=== PATIENT | female | born 1975 | race African-American/Black ===

== ENCOUNTER 2020-04-08 19:31 | Emergency (ER) | payer OTHER ==
[~2020-04-08] VITALS: Ht 175.3 cm; Wt 65.8 kg
[2020-04-08 19:45] VITALS: BP_SYST 136
--- NOTE | 2020-04-08 19:52 | NUR ---
Pt placed to ER bed 06, to gown, report given to receiving RN.
--- NOTE | 2020-04-08 20:00 | NUR ---
DR. THORNE AT THE BEDSIDE EVALUATING PT
--- NOTE | 2020-04-08 20:10 | NUR ---
PT PRESENTS FROM HOME WITH CO GENERAL BODY PAIN AND FATIGUE FOR THE PAST MONTH. DENIES ANY MEDICAL HX. AAOX4, V/S STABLE.
--- NOTE | 2020-04-08 20:20 | NUR ---
Patient given written and verbal discharge instructions and verbalizes understanding. ER MD discussed with patient the results and treatment provided. Patient in stable condition. ID arm band removed. Rx of IBUPROFEN AND FLEXERIL given. Patient educated on pain management and to follow up with PMD. Pain Scale 6/10. Opportunity for questions provided and answered. Medication side effect fact sheet provided.
[2020-04-08 20:23] VITALS: BP_SYST 136
== END 2020-04-08 20:23 | disposition home or self-care (01) ==
LOC: SED 19:31
DX: S16.1XXA Strain of muscle, fascia and tendon at neck level, initial encounter (principal); J45.909 Unspecified asthma, uncomplicated; X50.3XXA Overexertion from repetitive movements, initial encounter; Y93.89 Activity, other specified; Y92.89 Other specified places as the place of occurrence of the external cause; Y99.8 Other external cause status
CPT/HCPCS: 99283

== ENCOUNTER 2021-03-15 10:07 | Emergency (ER) | payer OTHER ==
[~2021-03-15] VITALS: Ht 175.3 cm; Wt 68.0 kg
[2021-03-15 10:07] VITALS: BP_SYST 125
--- NOTE | 2021-03-15 10:10 | NUR ---
Patient triaged and placed in waiting room. VSS and patient appears in no acute distress at this time. Accompanied by SELF, awaiting available bed, and MD notified of need for MSE.
--- NOTE | 2021-03-15 10:40 | NUR ---
DR BERMAN OUT TO TRIAGE ROOM FOR EVALUATION
--- NOTE | 2021-03-15 11:00 | NUR ---
PT PLACED IN BED 5. CONFIRMED UTI. AWAITING ORDERS.
[2021-03-15 11:03] LABS: BILIRUBIN,URINE NEGATIVE (NEGATIVE); BLOOD, URINE 3+ (NEGATIVE); CLARITY/URINE SL CLOUDY (CLEAR); COLOR,URINE YELLOW (YELLOW); GLUCOSE,URINE NEGATIVE (NEGATIVE); KETONES,URINE TRACE (NEGATIVE); LEUKOCYTE ESTERASE ,URINE TRACE (NEGATIVE); NITRITE, URINE POSITIVE (NEGATIVE); PH,URINE 6.5 (5.0-8.0); PROTEIN URINE 2+ (NEGATIVE)
[2021-03-15] MEDS ORDERED: NITR-85 PO (11:37)
[2021-03-15] MEDS ORDERED: NITROFURANTOIN MONOHYD/M-CRYST 100 MG CAPSULE (MacroBID) PO ONE (11:45)
[2021-03-15 11:54] LABS: BACTERIA,URINE MODERATE /HPF (None Seen); WBC,URINE 20-50 /HPF (0-3)
--- NOTE | 2021-03-15 11:57 | NUR ---
Patient given written and verbal discharge instructions and verbalizes understanding. ER MD discussed with patient the results and treatment provided. Patient in stable condition. ID arm band removed. Rx of MACROBID given. Patient educated on pain management and to follow up with PMD. Pain Scale 0/10. Opportunity for questions provided and answered. Medication side effect fact sheet provided.
[2021-03-15 11:58] VITALS: BP_SYST 125
== END 2021-03-15 11:58 | disposition home or self-care (01) ==
LOC: SED 10:07
DX: N39.0 Urinary tract infection, site not specified (principal); J45.909 Unspecified asthma, uncomplicated; Z79.899 Other long term (current) drug therapy
CPT/HCPCS: 81000; 81025; 87086; 99283

== ENCOUNTER 2021-10-23 10:36 | Inpatient (IN) | payer OTHER ==
[~2021-10-23] VITALS: Ht 175.3 cm; Wt 65.8 kg
[2021-10-23] VITALS (9 sets, daily range): BP systolic 92–103
[~2021-10-23 10:36] MED LIST: NITR-85 PO
--- NOTE | 2021-10-23 10:38 | NUR ---
BROUGHT IN BY [facility]. PLACED IN BED #5 AND TRIAGED. REPORT GIVEN TO NEMESIO
--- NOTE | 2021-10-23 11:10 | NUR ---
dr levine at bedside speaking with patient
[2021-10-23] MEDS ORDERED: fentaNYL CITRATE/PF 100 MCG/2 ML AMP IVP ONE (11:15)
[2021-10-23] MEDS ORDERED: NS 1000 ML IV.SOLN IV ONE (11:15)
[2021-10-23 11:49] LABS: ANION GAP 14 (5-15); CALCIUM 9.2 mg/dL (8.4-11.0); CHLORIDE 96 mmol/L (98-107); GLUCOSE 95 mg/dL (70-99); SODIUM SERUM 127 mmol/L (136-145); UREA NITROGEN, BLOOD 59 mg/dL (8-21)
[2021-10-23 11:52] LABS: INR 1.1 (0.8-1.2)
[2021-10-23 11:55] LABS: HEMATOCRIT 34.8 % (36-48); MEAN CORPUSCULAR HEMOGLOBIN 29 pg (27-31); MEAN CORPUSCULAR HGB CONC 32 % (32-36); MEAN CORPUSCULAR VOLUME 91 fL (79.0-98.0); RED BLOOD CELL COUNT(AUTO) 3.84 MIL/uL (4.2-6.2); RED CELL DISTRIBUTION WIDTH 17.8 % (9.0-15.0)
[2021-10-23 11:58] LABS: ALANINE AMINOTRANSFERASE 327 U/L (12-78); ALBUMIN 1.5 g/dL (3.4-4.8); ASPARTATE AMINOTRANSFERASE 617 U/L (10-37); TOTAL BILIRUBIN 2.9 mg/dL (0.0-1.0)
[2021-10-23 12:01] LABS: GFR AFRICAN AMERICAN 62 mL/min (>90); POTASSIUM 5.7 mmol/L (3.5-5.1)
[2021-10-23 12:02] LABS: PLATELET COUNT (AUTO) 15 K/uL (130-430); WHITE BLOOD COUNT (AUTO) 84.2 K/uL (4.8-10.8)
[2021-10-23] MEDS ORDERED: PIPERACILLIN/TAZO 4.5 GM in NS 100 ML IV ONE (12:30)
[2021-10-23] MEDS ORDERED: PIPERACILLIN/TAZOBACTAM 4.5 GM/VIAL (ZOSYN) IV ONE (12:36)
[2021-10-23] MEDS ORDERED: INSULIN REGULAR, HUMAN 10 UNITS/0.1 ML INJ IVP ONE (12:45)
[2021-10-23] MEDS ORDERED: CALCIUM GLUCONATE 1 GM in NS 100 ML IV ONE (12:45)
[2021-10-23] MEDS ORDERED: DEXTROSE 50% JECT 50 ML DISP.SYRIN IVP ONE (12:45)
[2021-10-23] MEDS ORDERED: SODIUM BICARBONATE 0.5 MEQ/ML VIAL INJ ONE (12:45)
[2021-10-23] MEDS ORDERED: LINEZOLID 300 ML IV ONE (13:15)
--- NOTE | 2021-10-23 13:21 | NUR ---
[facility] INSURANCE SALES SUPERVISOR OF INPATIENT IN [employer], CALLED BACK AND STATED PT CAN BE ADMITTED. DR. PENNY AND DR. العراقي IS AWARE. REQUESTED FAX OF [employer]. #: [phone] FAX: [phone]
[2021-10-23] MEDS ORDERED: SODIUM BICARBONATE 8.4% JECT 50 MEQ/50 ML SYRINGE ONE (13:28)
--- NOTE | 2021-10-23 13:29 | NUR ---
Admit bed requested Patient will be admitted to care of . Admitted to ICU unit. Diagnosis SEPTIC SHOCK, ACUTE IA Inpatient (Yes or No) YES Observation (Yes or No) NO Orientation concerns or request close to nursing station (Yes or No) NO Covid Status PENDING On vent or bipap NO Isolation requirements NO Needs a sitter NO From Home (Yes or if No enter name of facility) YES Requires Dialysis (Yes or No) NO Med Rec Completed (Yes of No) YES
[2021-10-23] MEDS ORDERED: DILAUDID (13:34)
[2021-10-23] MEDS ORDERED: METOCLOPRAMIDE HCL 10 MG/2 ML VIAL IVP PRN (14:00)
[2021-10-23] MEDS ORDERED: ACETAMINOPHEN 325 MG TABLET PO PRN (14:00)
[2021-10-23] MEDS ORDERED: ONDANSETRON HCL 4 MG/2 ML VIAL IVP PRN (14:00)
[2021-10-23] MEDS ORDERED: ALBUMIN HUMAN 25% 50 ML IV ONE (14:15)
--- NOTE | 2021-10-23 14:20 | NUR ---
EKG AT BEDSIDE.
--- NOTE | 2021-10-23 14:30 | NUR ---
Echocardiogram in progress.
--- NOTE | 2021-10-23 15:05 | NUR ---
PT TAKEN TO ICU VIA [facility] WITH NURSE LITTLE.
--- NOTE | 2021-10-23 15:05 | NUR ---
Patient will be admitted to [facility]. Admitted to ICU unit. Will go to room ICU. Belongings list completed. Complete and up to date summary report printed. SBAR report to be given at bedside with opportunity for questions.
--- NOTE | 2021-10-23 15:06 | NUR ---
TO ICU. BROUGHT PT TO ROOM 3, ON O2 VIA NASAL CANNULA, PORTABLE STORY WRITER, SINUS TACHYCARDIA, PT ALERT, ORIENTED, ABLE TO EXPRESS BASIC NEEDS, ORIENTATION TO SURROUNDINGS PROVIDED, WILL CONTINUE TO MONITOR.
[2021-10-23 15:16] LABS: ATYPICAL LYMPHOCYTES % 5 % (0-0); BAND % (MANUAL) 6 % (0-6); CORRECTED WHITE BLOOD COUNT 66.3 K/uL (4.5-11.0); LYMPHOCYTES % (MANUAL) 3 % (20-46); MONOCYTES % (MANUAL) 5 % (0-11)
[2021-10-23 15:17] LABS: BASOPHILS % (MANUAL) 0 % (0-2); EOSINOPHILS % (MANUAL) 0 % (0-7); METAMYELOCYTES % 1 % (0-0)
--- NOTE | 2021-10-23 15:40 | NUR ---
RN NOTES CONSULT FOR DR. Deborah FONTAINE CALLED WILL REQUEST FOR PATIENT MEDICAL RECORDS AT [facility].
[2021-10-23] MEDS: HYDROmorphone 2 MG/ML VIAL IVP PRN ×2 (15:54→20:37)
[2021-10-23] MEDS: D5NS 1,000 ML IV SCH (16:08)
--- NOTE | 2021-10-23 16:20 | NUR ---
MEDICATION. OVERHAULER HELPER PUMP WITH DILAUDID PLACED IN PHARMACY BAG, LABELED AND SENT TO PHARMACY DEPT FOR STORAGE.
[2021-10-23] MEDS ORDERED: DILT30TA36 PO (16:26)
--- NOTE | 2021-10-23 17:10 | NUR ---
NURSING. PT VERBALIZED URGENCY TO URINATE, BEDPAN PROVIDED, PT VOIDED BLOODY URINE, LAST MENSTRUAL PERIOD SEPTEMBER 16, SHE STATED "I MAY HAVE STARTED MY PERIOD", PERINEAL CARE DONE, WOUND TO LOWER SIDE OF BUTTOCKS NOTED, MADE PT CLEAN AND DRY.
[2021-10-23] MEDS: PIPERACILLIN/TAZO 3.375/DEX-IS 50 ML IV SCH (17:55)
[2021-10-23] MEDS: VANCOMYCIN HCL 750 MG in NS 250 ML IV SCH (20:42)
[2021-10-23] MEDS: HYDROmorphone 1 MG/ML INJ. CARTRIDGE IVP PRN (23:46)
[2021-10-24] VITALS (22 sets, daily range): BP systolic 71–126
[2021-10-24] MEDS: HYDROmorphone 2 MG/ML VIAL IVP PRN ×6 (01:11→20:14)
[2021-10-24] MEDS: D5NS 1,000 ML IV SCH ×3 (01:20→13:53)
[2021-10-24] MEDS: PIPERACILLIN/TAZO 3.375/DEX-IS 50 ML IV SCH ×3 (01:25→12:15)
[2021-10-24] MEDS ORDERED: LEVOFLOXACIN IN DEXTROSE 5 % 100 ML IV SCH (03:15)
[2021-10-24] MEDS: HYDROmorphone 1 MG/ML INJ. CARTRIDGE IVP PRN ×2 (05:17→12:28)
[2021-10-24] MEDS ORDERED: LEVOFLOXACIN IN DEXTROSE 5 % 100 ML IV ONE (05:37)
[2021-10-24 07:00] LABS: BASOPHILS # (AUTO) 0.3 K/uL (0.0-0.2); BASOPHILS % (AUTO) 0.4 % (0.0-2.0); EOSINOPHILS # (AUTO) 1.3 K/uL (0.0-0.4); EOSINOPHILS % (AUTO) 1.7 % (0.0-4.0); HEMATOCRIT 30.3 % (36-48); HEMOGLOBIN 9.3 g/dL (12.0-16.0); LYMPHOCYTES # (AUTO) 1.4 K/uL (1.0-5.5); LYMPHOCYTES % (AUTO) 1.9 % (20.5-51.5); MEAN CORPUSCULAR HEMOGLOBIN 28 pg (27-31); MEAN CORPUSCULAR HGB CONC 31 % (32-36); MEAN CORPUSCULAR VOLUME 91 fL (79.0-98.0); MONOCYTES # (AUTO) 2.1 K/uL (0.0-1.0); MONOCYTES % (AUTO) 2.9 % (1.7-9.3); NEUTROPHILS # (AUTO) 69.2 K/uL (1.8-7.7); NEUTROPHILS % (AUTO) 93.1 % (40.0-70.0); RED BLOOD CELL COUNT(AUTO) 3.32 MIL/uL (4.2-6.2); RED CELL DISTRIBUTION WIDTH 18.7 % (9.0-15.0)
[2021-10-24 07:32] LABS: PLATELET COUNT (AUTO) 10 K/uL (130-430); WHITE BLOOD COUNT (AUTO) 74.4 K/uL (4.8-10.8)
--- NOTE | 2021-10-24 07:40 | NUR ---
Consult for Dr. Alejandra garcia. Spoke with
[2021-10-24] MEDS ORDERED: NS 500 ML IV ONE (08:30)
[2021-10-24] MEDS: VANCOMYCIN HCL 750 MG in NS 250 ML IV SCH ×2 (08:58→22:46)
[2021-10-24] MEDS ORDERED: metroNIDAZOLE 500 mg/NS 100 ML IV ONE (09:30)
[2021-10-24] MEDS ORDERED: VANCOMYCIN HCL ORAL SOLUTION 250 MG/5 ML, 80 ML PO ONE (10:00)
[2021-10-24 10:22] LABS: ALBUMIN 1.6 g/dL (3.4-4.8); CALCIUM 8.8 mg/dL (8.4-11.0); CREATININE 1.11 mg/dL (0.55-1.30); POTASSIUM 5.1 mmol/L (3.5-5.1); TOTAL BILIRUBIN 2.9 mg/dL (0.0-1.0)
--- NOTE | 2021-10-24 10:43 | NUR ---
Content Strategy Lead LITHOGRAPHIC PRESS FEEDER Vani responded to a generated referral for social service support. Upon entering patient's room, the patient was visibly in pain. with her fiance at bedside consoling her. LITHOGRAPHIC PRESS FEEDER acknowledged this, and provided a brief introduction and informed them Anaesthetic Technician was available for support if/when needed. A business card was left on the bedside tray, and patient's fiance was informed they can also inform medical staff if 7th grade social studies teacher is needed. LITHOGRAPHIC PRESS FEEDER will continue to be available as needed.
[2021-10-24] MEDS ORDERED: NACL 0.9% 1,000 ML IV ONE (11:00)
[2021-10-24] MEDS ORDERED: LR 1,000 ML IV ONE ×2 (11:15)
[2021-10-24] MEDS ORDERED: LR 1,000 ML IV SCH ×2 (11:15)
--- NOTE | 2021-10-24 12:55 | NUR ---
Spoke to Dr. Vaca regarding pts blood type of B- not being available. He requested that Dr. Roberts be called.
[2021-10-24] MEDS: VANCOMYCIN HCL ORAL SOLUTION 250 MG/5 ML, 80 ML PO SCH ×3 (13:00→20:55)
--- NOTE | 2021-10-24 13:05 | NUR ---
Call placed to Dr. Roberts regarding platelet transfusion compatibility
--- NOTE | 2021-10-24 14:19 | NUR ---
Spoke with Dr. Roberts regarding pt being B- and only B+ and A- platelets available. Dr. Roberts said it is ok to give the B+ platelets to the pt who is B-. Second RN Maria L Light heard the order from Dr. Roberts as well.
--- NOTE | 2021-10-24 15:01 | NUR ---
Dietitian Recommendations * Consider [facility] fritz leyva prior to diet advancement LP, RD Please refer to Nutrition Assessment for details. Addendum: 10/24/21 at [address] Amended: Links added.
[2021-10-24] MEDS ORDERED: HYDROmorphone 2 MG/ML VIAL IVP PRN (15:30)
--- NOTE | 2021-10-24 16:36 | NUR ---
Spoke w/ Mr Gruber, patient's significant other. He is requesting transfer to [facility], under the care of Dr Avel Rodgers. I called [facility] transfer [facility] at [phone] and spoke to Sid. He stated the patient needs a reason to go to a higher level of care in order for a transfer to be initiated. She has not been seen as an inpatient at [facility] so she would also need an accepting MD. Mr Gruber was notified of the above information. If there is an order written that meets [facility] criteria for transfer, we will initiate a transfer.
[2021-10-24] MEDS ORDERED: metroNIDAZOLE 500 mg/NS 100 ML IV SCH (17:00)
--- NOTE | 2021-10-24 17:25 | NUR ---
WOUND EVALUATION: Late note for 10/24/2021 at 1725 secondary to patient care. Wound Consult received from Dr. Dimas. Thank you, Dr. Dimas, for the consult. Patient received in a Berkley Bed with an at most air 9000 mattress, awake, alert, and oriented. Patient is unable to turn independently. Adi Score is a 10. Past Medical History: Metastatic Sarcoma, Pulmonary Fibrosis versus Metastatic Lung Disease, recent chemotherapy in September,, Septic Shock, Leukocytosis, Acute Kidney Injury, diarrhea, Thrombocytopenia, lung cancer secondary to metastasis. Recent Labs: WBC 74.4, RBC 3.32, hemoglobin 9.3, hematocrit 30.3, platelets 10, sodium 133, potassium 5.6, BUN 65, creatinine 1.22, GFR 61, glucose albumin 1.6, PA TT 25.6, INR 1.1. Microbiology: Blood culture results x2 in progress. Endotracheal sputum culture results in progress. Intrinsic factors that delay wound healing: Metastatic Sarcoma, Pulmonary Fibrosis versus Metastatic Lung Disease, severe Hypoalbuminemia, Acute Kidney Injury, diarrhea, lung cancer secondary to metastasis. Extrinsic factors that delay wound healing: Decreased mobility. Per assessment by Dr. Vaca: High risk for decompensation, multifocal infiltrates possible pneumonia on top of her Metastatic Sarcoma. Overall prognosis is extremely poor. Wound Assessment: 1. Right Outer Buttock: Stage III pressure Ulcer, present on admission. Wound bed has 100% pink tissue. No odor, no drainage. Erasto-wound intact. Measures 2.1 cm x 4.3 cm. 2. Right Outer Buttock, lateral and superior to Site 1: Stage III pressure Ulcer, present on admission. Wound bed has 100% pink tissue. No odor, no drainage. Erasto-wound intact. 3. Right Intergluteal Fold: Stage III pressure Ulcer, present on admission. Wound bed has 85% pink tissue, 10% red tissue, 5% yellow tissue. No odor, scant yellow drainage. Erasto-wound intact. Measures 2.5 cm x 1.8 cm. 4. Right Erasto-Anal area: Stage II pressure Ulcer, present on admission. Wound bed has 95% red tissue, 5% pink tissue. No odor, no drainage. Erasto-wound intact. Measures 2.3 cm x 1.5 cm. 5. Left Erasto-Anal area: Stage II pressure Ulcer, present on admission. Wound bed has 90% red tissue, 10% pink tissue. No odor, no drainage. Erasto-wound intact. Measures 6.9 cm x 1.5 cm. 6. Central Intergluteal Cleft: Stage III pressure Ulcer, present on admission. Wound bed has 100% red tissue. No odor, no drainage. Erasto-wound intact. Measures 4.8 cm x 1.7 cm. Recommend: Cleanse wounds with normal saline. Apply moisture barrier cream to erasto-wounds. Apply Venelex ointment to wound beds. Cover with Sacral foam dressing. Perform wound care daily, and as needed for dressing soiling or dislodgement. Also recommend: Reposition patient side to side only every 2 hours with pillow support and off-load pressure areas with pillows for pressure re-distribution. Offload, elevate and float bilateral heels with pillows. Perform skin care and monitor skin integrity Q shift. Use moisture barrier cream on buttocks and other moisture susceptible areas QID and as needed for soiling. Place patient on a low air-loss mattress.
--- NOTE | 2021-10-24 17:55 | NUR ---
Nichole Nguyễn - During wound care/measuring pt became unresponsive with no pulse. Nichole Nguyễn called and CPR started.
--- NOTE | 2021-10-24 17:55 | NUR ---
RT NOTES RESPONDED TO CODE BLUE CPR IN PROGRESS, PT BEING BAGGED WITH 100% O2 VIA RESUS. BAG TO FACE MASK. @ 1804 PT WAS INTUBATED WITH 7.5 ETT SECURED @22CM, CO2 DETECTOR CHANGED TO YELLOW, BILATERAL BS/ CHEST RISE NOTED CONFIRMING PLACEMENT. ROSC @1805, PT TO VENT @1810 AC 14 450 +5 100%. VENT TO RED OUTLET, RESES. BAG REMAINS AT BEDSIDE, ALARMS ARE SET AND AUDIBLE AT NURSES STATION. SPUTUM COLLECTED AND ENDORSED TO LAB.
--- NOTE | 2021-10-24 17:58 | NUR ---
ER team arrived and took over CPR. Crash cart connected and IV platelets stopped infusing and line flushed. Epi dose given. Er MD Dr Joseph at bedside. Pt in PEA. Dr Joseph speaks with pts significant other at bedside during CPR and the family member wants everything done. See Code clue sheet for further details.
[2021-10-24] MEDS ORDERED: LIDOCAINE 2 GM/500 ML IV PRN ×2 (18:15→18:45)
[2021-10-24] MEDS ORDERED: D5W IV PRN ×2 (18:15→18:45)
[2021-10-24] MEDS ORDERED: MENTHOL/ZINC OXIDE 113 GM OINT. TP PRN (18:30)
[2021-10-24] MEDS ORDERED: NALOXONE HCL 0.4 MG/ML AMP (NARCAN) IVP PRN (18:45)
[2021-10-24] MEDS ORDERED: MORPHINE SULFATE IN 0.9 % NACL 100 ML IV PRN (18:45)
[2021-10-24] MEDS ORDERED: VASOPRESSIN 40 UNITS in NS 38 ML IV PRN (18:45)
[2021-10-24] MEDS ORDERED: NOREPINEPHRINE 4 MG/4 ML VIAL IV ONE ×3 (18:47→23:47)
--- NOTE | 2021-10-24 18:55 | NUR ---
Platelet transfusion Unable to give all of platelet transfusion due to pt coding during transfusion and only 1 IV access. Pt has a medi port. PICC line ordered.
--- NOTE | 2021-10-24 19:42 | NUR ---
Spoke to PICC line RN. He will be by to place the PICC lines brandi.
[2021-10-24 19:48] LABS: CALCIUM 8.6 mg/dL (8.4-11.0); CREATININE 1.22 mg/dL (0.55-1.30)
[2021-10-24 19:51] LABS: POTASSIUM 5.6 mmol/L (3.5-5.1)
[2021-10-24] MEDS: PROPOFOL DRIP 100 ML IV PRN (20:10)
--- NOTE | 2021-10-24 20:15 | NUR ---
PICC PICC line TI Ruiz is at the bedside placing a PICC on the patient. Consent was given and signed.
--- NOTE | 2021-10-24 20:40 | NUR ---
Dr Pickens paged to report ABG results
--- NOTE | 2021-10-24 20:45 | NUR ---
. Dr. Pickens called back. RN gave report about the ABG results. New order given. Increase rate to 20 and repeat ABG at 0700.
--- NOTE | 2021-10-24 21:48 | NUR ---
Order per Dr. Pickens to increase RR to 20 done at 2147. PT is tolerating ventilator settings well.
--- NOTE | 2021-10-24 22:06 | NUR ---
CXR completed. Picc line ok to use as per Joseph Picc line nurse .
--- NOTE | 2021-10-24 22:42 | NUR ---
INITIAL RT ASSESSMENT WAS COMPLETED BUT WOULD NOT SAVE UNLESS ABG FIO2 WAS EXCLUDED FROM REPORT. PT IS CURRENTLY ON VENT SETTINGS OF AC20, 450, +5, 100%
[2021-10-24] MEDS: NOREPINEPHRINE BITARTRATE 4 MG in NS 246 ML IV PRN ×2 (22:45→23:53)
[2021-10-25] VITALS (13 sets, daily range): BP systolic 100–143
[2021-10-25] MEDS: DEXAMETHASONE SOD PHOSPHATE 4 MG/ML VIAL IVP SCH ×2 (00:09→06:26)
[2021-10-25] MEDS: HYDROmorphone 2 MG/ML VIAL IVP PRN (00:55)
[2021-10-25] MEDS ORDERED: NOREPINEPHRINE 4 MG/4 ML VIAL IV ONE ×3 (02:11→06:52)
[2021-10-25] MEDS: NOREPINEPHRINE BITARTRATE 4 MG in NS 246 ML IV PRN ×3 (02:19→06:54)
[2021-10-25] MEDS ORDERED: LEVOFLOXACIN IN DEXTROSE 5 % 100 ML IV SCH (06:00)
[2021-10-25] MEDS: D5NS 1,000 ML IV SCH (06:27)
[2021-10-25] MEDS: PROPOFOL DRIP 100 ML IV PRN (06:57)
--- NOTE | 2021-10-25 07:55 | NUR ---
NURSING PT'S SISTER CARMELA AT BEDSIDE, R.T.'S ON DUTY ATTEMPTING TO DRAW BLOOD FOR ABG, PATIENT'S PULSES FAINT AND WEAK, SISTER REFUSED THE TREATMENT, SHE STATED " LET HER REST".
[2021-10-25] MEDS: VANCOMYCIN HCL 750 MG in NS 250 ML IV SCH (08:22)
[2021-10-25 08:34] LABS: HEMATOCRIT 27.1 % (36-48); HEMOGLOBIN 8.2 g/dL (12.0-16.0); MEAN CORPUSCULAR HEMOGLOBIN 32 pg (27-31); MEAN CORPUSCULAR HGB CONC 30 % (32-36); MEAN CORPUSCULAR VOLUME 104 fL (79.0-98.0); RED BLOOD CELL COUNT(AUTO) 2.61 MIL/uL (4.2-6.2)
[2021-10-25 08:37] LABS: INR 1.5 (0.8-1.2); PROTHROMBIN TIME 15.5 SECS (9.5-12.5)
[2021-10-25 08:38] LABS: ALBUMIN 0.9 g/dL (3.4-4.8); CREATININE 1.49 mg/dL (0.55-1.30); TOTAL BILIRUBIN 2.7 mg/dL (0.0-1.0)
[2021-10-25] MEDS ORDERED: BALSAM PERU/CASTOR OIL 56.7 GM OINT...G. TP SCH (09:00)
--- NOTE | 2021-10-25 09:10 | NUR ---
Nutrition Consult Note RD received Nutrition Consult 10/24/21 1830 d/t wounds. Pt was seen and assessed by RD yesterday, 10/24/21. RD reviewed pt's recent EMR records; pt is s/p code blue yesterday afternoon, and was intubated/sedated; propofol infusing 7.893 ml/hr and D5%/NS at 100 ml/hr -- together provide ~616 kcal/day. Pt may be a candidate for EN support if/when hemodynamically stable. Consider NGT/OGT placement and initiation of Vital AF 1.2 TF formula for trophic feeds. Pt is scheduled to be seen for Nutrition F/U by 10/27/21 as per nutrition care standards/high nutritional risk criteria policies/procedures.
[2021-10-25 09:18] LABS: CALCIUM 6.4 mg/dL (8.4-11.0); POTASSIUM 5.9 mmol/L (3.5-5.1)
--- NOTE | 2021-10-25 09:33 | NUR ---
NURSING. PT'S SISTER, AUNT AND FIANCE IN THE ROOM. SISTER CAME TO THE UNIT AND WANTED TO SPEAK TO ANY PHYSICIAN THAT SHE HAS, SHE ASKED TO TAKE HER OFF THE VENTILATOR. DR RASMUSSEN WAS CALLED, AND GAVE HIM OBSERVATION OF THE PATIENT. 5 WISHES DOCUMENT IN THE FILE. THE PATIENT'S FIANCE AND HER SISTER WAS PUT ON THE PHONE TO SPEAK TO THE PHYSICIAN.
--- NOTE | 2021-10-25 09:48 | NUR ---
CODE STATUS DR RASMUSSEN ORDERED DNR, CHARGE NURSE VERIFIED ORDERS OVER THE PHONE.
[2021-10-25] MEDS ORDERED: MORPHINE SULFATE 10 MG/ML VIAL IVP ONE (10:00)
[2021-10-25] MEDS ORDERED: LORazepam 2 MG/ML VIAL IVP ONE (10:00)
--- NOTE | 2021-10-25 10:07 | NUR ---
EXPIRATION PT ASYSTOLE ON MACHINE CERAMIC COATER, NO BLOOD PRESSURE, NO HEART BEAT, NO PULSES, UNRESPONSIVE TO PAINFUL STIMULI, PUPILS FIXED AND DILATED, PT ON MECHANICAL VENTILATION, DNR. FAMILY AWARE.
--- NOTE | 2021-10-25 10:07 | NUR ---
RN NOTES CODE STATUS: DNR / COMFORT MEASURES PATIENT NOTED TO BE UNRESPONSIVE TO TACTILE STIMULI. NO PALPABLE PULSES NOTED, NO SPONTANEOUS RESP. NOTED. PUPILS FIXED AND DILATED. ASYSTOLE ON THE PRODUCT EXPERT. ASSESSMENT VERIFIED BY LITTLE ROACH RN AND MYSELF FAMILY AT BEDSIDE, MADE AWARE.
--- NOTE | 2021-10-25 10:11 | NUR ---
ORDER TO TERMINALLY EXTUBATE PT, PT 1007. FAMILY AT BEDSIDE. Addendum: 10/25/21 at 1039 by Joyce Duque RT Amended: Links added.
--- NOTE | 2021-10-25 10:30 | NUR ---
RN NOTES ATTENDING MD AND CONSULTS NOTIFIED OF PATIENT EXPIRATION. DR. العراقي, DR. RASMUSSEN, DR. BOGGS, DR. PHAN, DR. FONTAINE NOTIFIED.
[2021-10-25 10:59] LABS: PLATELET COUNT (AUTO) 37 K/uL (130-430); WHITE BLOOD COUNT (AUTO) 64.8 K/uL (4.8-10.8)
--- NOTE | 2021-10-25 14:00 | NUR ---
[facility] LAWN DISTRICT MANAGER [employer] SALES HERE TO TRANSPORT BODY, JOHN ARIZA.
[2021-10-25 14:02] LABS: CORRECTED WHITE BLOOD COUNT 39.5 K/uL (4.5-11.0)
[2021-10-25 14:03] LABS: ATYPICAL LYMPHOCYTES % 14 % (0-0); BAND % (MANUAL) 6 % (0-6); BASOPHILS % (MANUAL) 0 % (0-2); EOSINOPHILS % (MANUAL) 0 % (0-7); LYMPHOCYTES % (MANUAL) 20 % (20-46); METAMYELOCYTES % 4 % (0-0); MONOCYTES % (MANUAL) 10 % (0-11); MYELOCYTES % 4 % (0-0)
== END 2021-10-25 10:07 | DRG 871 ==
LOC: SED 10:36 → SIC 13:27
PROVIDERS: ADMIT Internal Medicine Hospice and Palliative Medicine; ATTEND Internal Medicine Hospice and Palliative Medicine
PROC: 30233R1 Transfusion of Nonautologous Platelets into Peripheral Vein, Percutaneous Approach (ICD-10-PCS; principal; 2021-10-24)
PROC: 0BH17EZ Insertion of Endotracheal Airway into Trachea, Via Natural or Artificial Opening (ICD-10-PCS; 2021-10-24)
PROC: 5A1935Z Respiratory Ventilation, Less than 24 Consecutive Hours (ICD-10-PCS; 2021-10-24)
PROC: 02HV33Z Insertion of Infusion Device into Superior Vena Cava, Percutaneous Approach (ICD-10-PCS; 2021-10-24)
PROC: B548ZZA Ultrasonography of Superior Vena Cava, Guidance (ICD-10-PCS; 2021-10-24)
DX: A41.9 Sepsis, unspecified organism (principal); R65.21 Severe sepsis with septic shock; N17.9 Acute kidney failure, unspecified; M33.13 Other dermatomyositis without myopathy; C79.51 Secondary malignant neoplasm of bone; D61.818 Other pancytopenia; E46 Unspecified protein-calorie malnutrition; E87.1 Hypo-osmolality and hyponatremia; C79.89 Secondary malignant neoplasm of other specified sites; C34.90 Malignant neoplasm of unspecified part of unspecified bronchus or lung; Z66 Do not resuscitate; D69.6 Thrombocytopenia, unspecified; E87.5 Hyperkalemia; Z20.822 Contact with and (suspected) exposure to COVID-19; G89.4 Chronic pain syndrome; I10 Essential (primary) hypertension; I46.9 Cardiac arrest, cause unspecified; K75.9 Inflammatory liver disease, unspecified; L89.309 Pressure ulcer of unspecified buttock, unspecified stage; Z51.5 Encounter for palliative care; Z92.21 Personal history of antineoplastic chemotherapy; Z79.899 Other long term (current) drug therapy; Z68.21 Body mass index [BMI] 21.0-21.9, adult
CPT/HCPCS: 36415; 36430; 36600; 71045; 73552; 80048; 80053; 80202; 82803-TC; 82962; 83605; 84484; 85007; 85025; 85027; 85610-TC; 85730-TC; 86886; 86900; 86901; 87040; 87070-TC; 87205-TC; 93005; 93306; 94002; 94003; 96374; 96375; 99285; J1100; J1170; J1956; J2270; J2543; J2704; J3010; J3370; J3490; J7050; P9034; P9046